=== PATIENT | female | born 1940 | race Hispanic/Latino ===

== ENCOUNTER 2021-03-29 22:43 | Inpatient (IN) | payer MEDICARE, OTHER ==
[~2021-03-29] VITALS: Ht 149.9 cm; Wt 49.9 kg
[~2021-03-29 22:43] MED LIST: ALENDRONATE SOD70 MG PO; AMLODIPINE BESYL5 MG PO; ASPIRIN ENTERI325 MG PO; ATORVASTATIN CA20 MG PO; CALCIUM 500+D1 EACH PO; CENTRUM SILVER1 EAC3 PO; DIOVAN160 MG PO; ISOSORBIDE MONO30 MG PO; LOVAZA1 GM PO; METOPROLOL TART50 MG PO; MIRALAX17 GM PO; NITROGLYCERIN0.4 MG SL; OMEPRAZOLE20 MG PO; OXYBUTYNIN CHLOR5 MG PO; TYLENOL EXTRA500 MG PO; VITAMIN D400 UNIT PO
[2021-03-29] MEDS ORDERED: ALBUTEROL/IPRATROPIUM 3 ML NEB NEB ONE (23:00)
[2021-03-29] MEDS ORDERED: DEXAMETHASONE SOD PHOS 10 MG/1 ML VIAL IV ONE (23:00)
[2021-03-29] MEDS ORDERED: IBUPROFEN 600 MG TAB PO STA (23:11)
[2021-03-29 23:18] LABS: BASOPHILS % 0.3 % (0.0-1.0); EOSINOPHILS # (AUTO) 0.1 (0.0-0.4); EOSINOPHILS % 0.3 % (0.0-6.0); HEMATOCRIT 34.1 % (34.2-44.1); HEMOGLOBIN 10.8 g/dL (12.0-16.0); LYMPHOCYTES # (AUTO) 1.3 (1.0-3.2); MEAN CORPUSCULAR HEMOGLOBIN 27.2 pg (28-32); MEAN CORPUSCULAR HGB CONC 31.7 g/dL (31-35); MEAN CORPUSCULAR VOLUME 85.9 fL (81-99); MONOCYTES # (AUTO) 1.5 (0.2-0.8); MONOCYTES % 10.6 % (4.4-11.3); NEUTROPHILS # (AUTO) 11.3 (2.1-6.9); PLATELET COUNT 348 x10e3/uL (140-360); RED BLOOD COUNT 3.97 x10e6/uL (3.6-5.1); RED CELL DISTRIBUTION WIDTH 20.7 % (11.7-14.4)
[2021-03-29] MEDS ORDERED: IBUPROFEN 600 MG TAB ONE (23:23)
[2021-03-29 23:34] LABS: ALBUMIN 3.4 g/dL (3.5-5.0); ALBUMIN/GLOBULIN RATIO 0.7 (0.8-2.0); ANION GAP 22.1 mmol/L (8-16); CALCIUM 8.8 mg/dL (8.4-10.2); CREATININE, SERUM 0.83 mg/dL (0.57-1.11); POTASSIUM 5.1 mmol/L (3.5-5.1)
[2021-03-29 23:43] LABS: B-TYPE NATRIURETIC PEPTIDE2 207.6 pg/mL (0-100)
[2021-03-29] MEDS ORDERED: ALBUTEROL1.25 MG/3 NEB (23:53)
[2021-03-29] MEDS ORDERED: ADVAIR 250-501 EACH INH (23:53)
[2021-03-29] MEDS ORDERED: SODIUM CHLORIDE3 ML NEB (23:53)
[2021-03-29] MEDS ORDERED: NEURONTIN300 MG PO (23:53)
[2021-03-29] MEDS ORDERED: NEURONTIN100 MG PO (23:53)
[2021-03-29] MEDS ORDERED: FORMOTEROL20 MCG/2 M INH (23:53)
[2021-03-29] MEDS ORDERED: ULTRAM50 MG PO (23:53)
[2021-03-29] MEDS ORDERED: MIRTAZAPINE7.5 MG PO (23:53)
[2021-03-29] MEDS ORDERED: HYDRALAZINE HCL10 MG PO (23:53)
[2021-03-29] MEDS ORDERED: FLONASE ALLERG9.9 ML INH (23:53)
[2021-03-30] MEDS ORDERED: LACTATED RINGER'S 1,000 ML INJ ONE
[2021-03-30] MEDS ORDERED: CEFTRIAXONE 1 GM in SODIUM CHLORIDE 0.9% 50ML 50 ML IV SCH (00:30)
[2021-03-30 02:58] VITALS: BP 114/69
[2021-03-30] MEDS ORDERED: POLYETHYLENE GLYCOL 3350 17 GM PACK PO PRN (08:15)
[2021-03-30] MEDS ORDERED: SODIUM CHLORIDE 0.9% NEBU SOLN 15 ML AMPULE INH PRN (08:15)
[2021-03-30] MEDS ORDERED: ONDANSETRON HCL INJ 2MG/ML 2ML 2 MG/ML VIAL IV PRN (08:15)
[2021-03-30] MEDS ORDERED: TRAMADOL HCL 50 MG TAB PO PRN (08:15)
[2021-03-30] MEDS ORDERED: GABAPENTIN 100 MG CAP PO PRN (08:15)
[2021-03-30] MEDS: ALBUTEROL/IPRATROPIUM 3 ML NEB NEB SCH ×6 (08:32→22:40)
[2021-03-30] MEDS ORDERED: ENOXAPARIN SOD INJ 40 MG/0.4 ML SYR SC SCH (09:00)
[2021-03-30] MEDS: HYDRALAZINE HCL 10 MG TAB PO SCH ×2 (09:09→16:25)
[2021-03-30] MEDS: ASPIRIN 325 MG TAB EC PO SCH (09:10)
[2021-03-30] MEDS: PANTOPRAZOLE SOD 40 MG TABEC PO SCH (09:11)
[2021-03-30] MEDS: ISOSORBIDE MONONITRATE 30 MG TAB CR PO SCH (09:11)
[2021-03-30] MEDS: OXYBUTYNIN CHLORIDE 5 MG TAB PO SCH ×2 (09:12→16:25)
[2021-03-30] MEDS: METOPROLOL TARTRATE 50 MG TAB PO SCH ×2 (09:12→16:27)
[2021-03-30] MEDS: CEFEPIME 1 GM in SODIUM CHLORIDE 0.9% 50ML 50 ML IV SCH ×2 (13:26→21:12)
[2021-03-30] MEDS ORDERED: CEFEPIME HCL 1 GM VIAL ONE (13:39)
[2021-03-30] MEDS: ACETAMINOPHEN 325 MG TAB PO PRN (16:37)
[2021-03-30] MEDS ORDERED: FORMOTEROL FUMARATE 20 MCG/2 ML VIAL IH SCH (19:00)
[2021-03-30] MEDS: SALMETEROL/FLUTICASONE 250/50 INH SCH (19:30)
[2021-03-30] MEDS ORDERED: SALMETEROL/FLUTICASONE 250/50 INH SCH (21:00)
[2021-03-30] MEDS: ATORVASTATIN 40 MG TAB PO SCH (21:12)
[2021-03-30] MEDS: MIRTAZAPINE 15 MG TAB PO SCH (21:12)
[2021-03-30] MEDS: GABAPENTIN 300 MG CAP PO SCH (21:12)
[2021-03-31] VITALS (10 sets, daily range): BP systolic 126–162; BP diastolic 67–79
[2021-03-31 05:56] LABS: BASOPHILS % 0.1 % (0.0-1.0); EOSINOPHILS % 0.1 % (0.0-6.0); HEMATOCRIT 29.2 % (34.2-44.1); HEMOGLOBIN 9.1 g/dL (12.0-16.0); LYMPHOCYTES # (AUTO) 1.3 (1.0-3.2); LYMPHOCYTES % 16.8 % (18.0-39.1); MEAN CORPUSCULAR HGB CONC 31.2 g/dL (31-35); MEAN CORPUSCULAR VOLUME 86.6 fL (81-99); MONOCYTES # (AUTO) 0.9 (0.2-0.8); MONOCYTES % 12.1 % (4.4-11.3); NEUTROPHILS # (AUTO) 5.2 (2.1-6.9); NEUTROPHILS % 69.2 % (38.7-80.0); PLATELET COUNT 307 x10e3/uL (140-360); RED BLOOD COUNT 3.37 x10e6/uL (3.6-5.1); RED CELL DISTRIBUTION WIDTH 20.3 % (11.7-14.4)
[2021-03-31] MEDS: CEFEPIME 1 GM in SODIUM CHLORIDE 0.9% 50ML 50 ML IV SCH ×3 (06:00→21:23)
[2021-03-31 06:14] LABS: ALBUMIN 2.8 g/dL (3.5-5.0); ALBUMIN/GLOBULIN RATIO 0.8 (0.8-2.0); ANION GAP 12.2 mmol/L (8-16); CALCIUM 8.4 mg/dL (8.4-10.2); CREATININE, SERUM 0.76 mg/dL (0.57-1.11); POTASSIUM 4.2 mmol/L (3.5-5.1)
[2021-03-31] MEDS: ALBUTEROL/IPRATROPIUM 3 ML NEB NEB SCH ×5 (07:10→22:55)
[2021-03-31] MEDS: PANTOPRAZOLE SOD 40 MG TABEC PO SCH (08:09)
[2021-03-31] MEDS: ASPIRIN 325 MG TAB EC PO SCH (08:10)
[2021-03-31] MEDS: HYDRALAZINE HCL 10 MG TAB PO SCH ×2 (08:10→17:03)
[2021-03-31] MEDS: OXYBUTYNIN CHLORIDE 5 MG TAB PO SCH ×2 (08:10→17:03)
[2021-03-31] MEDS: ISOSORBIDE MONONITRATE 30 MG TAB CR PO SCH (08:10)
[2021-03-31] MEDS: ENOXAPARIN 30 MG/0.3 ML SYR SC SCH (08:11)
[2021-03-31] MEDS: METOPROLOL TARTRATE 50 MG TAB PO SCH ×2 (08:11→17:03)
[2021-03-31] MEDS: SALMETEROL/FLUTICASONE 250/50 INH SCH ×2 (08:11→11:15)
[2021-03-31] MEDS ORDERED: SODIUM CHLORIDE 0.9% 250ML 250 ML ONE (08:30)
[2021-03-31] MEDS: ATORVASTATIN 40 MG TAB PO SCH (20:14)
[2021-03-31] MEDS: MIRTAZAPINE 15 MG TAB PO SCH (20:15)
[2021-03-31] MEDS: GABAPENTIN 300 MG CAP PO SCH (20:15)
[2021-04-01] VITALS (7 sets, daily range): BP systolic 118–160; BP diastolic 73–82
[2021-04-01] MEDS: ALBUTEROL/IPRATROPIUM 3 ML NEB NEB SCH ×6 (03:20→23:50)
[2021-04-01] MEDS: CEFEPIME 1 GM in SODIUM CHLORIDE 0.9% 50ML 50 ML IV SCH ×3 (05:24→20:51)
[2021-04-01] MEDS: SALMETEROL/FLUTICASONE 250/50 INH SCH ×2 (07:24→19:30)
[2021-04-01] MEDS: PANTOPRAZOLE SOD 40 MG TABEC PO SCH (09:18)
[2021-04-01] MEDS: HYDRALAZINE HCL 10 MG TAB PO SCH ×2 (09:19→17:34)
[2021-04-01] MEDS: ENOXAPARIN 30 MG/0.3 ML SYR SC SCH (09:19)
[2021-04-01] MEDS: METOPROLOL TARTRATE 50 MG TAB PO SCH ×2 (09:19→17:34)
[2021-04-01] MEDS: ISOSORBIDE MONONITRATE 30 MG TAB CR PO SCH (09:19)
[2021-04-01] MEDS: OXYBUTYNIN CHLORIDE 5 MG TAB PO SCH ×2 (09:19→17:34)
[2021-04-01] MEDS: ASPIRIN 325 MG TAB EC PO SCH (09:19)
[2021-04-01] MEDS: DRONABINOL 2.5MG PO SCH (17:33)
[2021-04-01] MEDS ORDERED: CEFEPIME HCL 1 GM VIAL ONE (20:45)
[2021-04-01] MEDS: GABAPENTIN 300 MG CAP PO SCH (20:51)
[2021-04-01] MEDS: ATORVASTATIN 40 MG TAB PO SCH (20:51)
[2021-04-01] MEDS: MIRTAZAPINE 15 MG TAB PO SCH (20:51)
[2021-04-01] MEDS: ACETAMINOPHEN 325 MG TAB PO PRN (23:21)
[2021-04-02] VITALS (8 sets, daily range): BP systolic 108–179; BP diastolic 61–90
[2021-04-02] MEDS: ALBUTEROL/IPRATROPIUM 3 ML NEB NEB SCH ×6 (03:25→22:50)
[2021-04-02 04:16] LABS: CLARITY,URINE CLEAR (CLEAR); COLOR,URINE YELLOW (YELLOW); KETONES,URINE NEGATIVE (NEGATIVE); LEUKOCYTE ESTERASE ,URINE NEGATIVE (NEGATIVE); NITRITE,URINE NEGATIVE (NEGATIVE); PROTEIN,URINE DIPSTICK 2+ (NEGATIVE); URINE UROBILINOGEN 0.2 mg/dL (0.2 - 1)
[2021-04-02 04:26] LABS: BACTERIA,URINE FEW /HPF; EPITHELIAL CELLS,URINE FEW /LPF; TRANSITIONAL EPI CELLS,URINE MODERATE; WBC,URINE (MAN) 0-5 /HPF (0-5)
[2021-04-02] MEDS: CEFEPIME 1 GM in SODIUM CHLORIDE 0.9% 50ML 50 ML IV SCH ×3 (05:44→21:08)
[2021-04-02 05:59] LABS: BASOPHILS # (AUTO) 0.1 (0.0-0.1); BASOPHILS % 0.9 % (0.0-1.0); EOSINOPHILS % 0.4 % (0.0-6.0); HEMATOCRIT 33.9 % (34.2-44.1); HEMOGLOBIN 10.2 g/dL (12.0-16.0); LYMPHOCYTES # (AUTO) 1.3 (1.0-3.2); LYMPHOCYTES % 23.7 % (18.0-39.1); MEAN CORPUSCULAR HEMOGLOBIN 27.1 pg (28-32); MEAN CORPUSCULAR HGB CONC 30.1 g/dL (31-35); MEAN CORPUSCULAR VOLUME 89.9 fL (81-99); MONOCYTES # (AUTO) 1.3 (0.2-0.8); MONOCYTES % 24.5 % (4.4-11.3); NEUTROPHILS # (AUTO) 2.3 (2.1-6.9); NEUTROPHILS % 44.1 % (38.7-80.0); PLATELET COUNT 141 x10e3/uL (140-360); RED BLOOD COUNT 3.77 x10e6/uL (3.6-5.1)
[2021-04-02 06:15] LABS: ANION GAP 15.3 mmol/L (8-16); CALCIUM 8.4 mg/dL (8.4-10.2); CREATININE, SERUM 0.68 mg/dL (0.57-1.11); POTASSIUM 4.3 mmol/L (3.5-5.1)
[2021-04-02] MEDS: SALMETEROL/FLUTICASONE 250/50 INH SCH ×2 (06:27→22:50)
[2021-04-02] MEDS: DRONABINOL 2.5MG PO SCH (07:30)
[2021-04-02] MEDS ORDERED: SODIUM CHLORIDE 0.9% 250ML 250 ML ONE (07:57)
[2021-04-02] MEDS: ASPIRIN 325 MG TAB EC PO SCH (09:00)
[2021-04-02] MEDS: HYDRALAZINE HCL 10 MG TAB PO SCH ×2 (10:00→17:12)
[2021-04-02] MEDS: OXYBUTYNIN CHLORIDE 5 MG TAB PO SCH ×2 (10:00→17:12)
[2021-04-02] MEDS: METOPROLOL TARTRATE 50 MG TAB PO SCH ×2 (10:00→17:13)
[2021-04-02] MEDS: ENOXAPARIN 30 MG/0.3 ML SYR SC SCH (10:00)
[2021-04-02] MEDS: ISOSORBIDE MONONITRATE 30 MG TAB CR PO SCH (10:00)
[2021-04-02] MEDS: PANTOPRAZOLE SOD 40 MG TABEC PO SCH (10:00)
[2021-04-02] MEDS: ACETAMINOPHEN 325 MG TAB PO PRN (18:19)
[2021-04-02] MEDS: GABAPENTIN 300 MG CAP PO SCH (20:08)
[2021-04-02] MEDS: ATORVASTATIN 40 MG TAB PO SCH (20:08)
[2021-04-02] MEDS: MIRTAZAPINE 15 MG TAB PO SCH (20:08)
[2021-04-02] MEDS ORDERED: CLONIDINE HCL 0.1 MG TAB PO PRN (20:15)
[2021-04-03] VITALS (9 sets, daily range): BP systolic 126–179; BP diastolic 60–84
[2021-04-03] MEDS: ALBUTEROL/IPRATROPIUM 3 ML NEB NEB SCH ×6 (02:50→22:55)
[2021-04-03] MEDS: CEFEPIME 1 GM in SODIUM CHLORIDE 0.9% 50ML 50 ML IV SCH ×3 (05:09→22:20)
[2021-04-03] MEDS: SALMETEROL/FLUTICASONE 250/50 INH SCH ×2 (06:36→18:20)
[2021-04-03] MEDS ORDERED: SODIUM CHLORIDE 0.9% 250ML 250 ML ONE (07:34)
[2021-04-03] MEDS: OXYBUTYNIN CHLORIDE 5 MG TAB PO SCH ×2 (09:10→17:00)
[2021-04-03] MEDS: ISOSORBIDE MONONITRATE 30 MG TAB CR PO SCH (09:10)
[2021-04-03] MEDS: ASPIRIN 325 MG TAB EC PO SCH (09:10)
[2021-04-03] MEDS: HYDRALAZINE HCL 10 MG TAB PO SCH ×2 (09:10→17:00)
[2021-04-03] MEDS: PANTOPRAZOLE SOD 40 MG TABEC PO SCH (09:10)
[2021-04-03] MEDS: POLYETHYLENE GLYCOL 3350 17 GM PACK PO SCH (09:11)
[2021-04-03] MEDS: ENOXAPARIN 30 MG/0.3 ML SYR SC SCH (09:11)
[2021-04-03] MEDS: METOPROLOL TARTRATE 50 MG TAB PO SCH ×2 (09:11→17:00)
[2021-04-03] MEDS: DEXTROSE 5%/0.9% SOD CHL 1,000 ML IV SCH (17:18)
[2021-04-03] MEDS: MIRTAZAPINE 15 MG TAB PO SCH (21:00)
[2021-04-03] MEDS: ATORVASTATIN 40 MG TAB PO SCH (21:00)
[2021-04-03] MEDS: GABAPENTIN 300 MG CAP PO SCH (21:00)
[2021-04-04] VITALS: BP 164/66
[2021-04-04] MEDS: ALBUTEROL/IPRATROPIUM 3 ML NEB NEB SCH ×6 (03:32→21:50)
[2021-04-04 04:00] VITALS: BP 109/40
[2021-04-04] MEDS: CEFEPIME 1 GM in SODIUM CHLORIDE 0.9% 50ML 50 ML IV SCH (06:20)
[2021-04-04] MEDS: DEXTROSE 5%/0.9% SOD CHL 1,000 ML IV SCH ×2 (06:20→19:40)
[2021-04-04 07:33] VITALS: BP 109/40
[2021-04-04] MEDS: SALMETEROL/FLUTICASONE 250/50 INH SCH ×2 (08:17→19:00)
[2021-04-04] MEDS: ASPIRIN 325 MG TAB EC PO SCH (08:29)
[2021-04-04] MEDS: ISOSORBIDE MONONITRATE 30 MG TAB CR PO SCH (08:29)
[2021-04-04] MEDS: OXYBUTYNIN CHLORIDE 5 MG TAB PO SCH (08:29)
[2021-04-04] MEDS: HYDRALAZINE HCL 10 MG TAB PO SCH ×2 (08:29→17:00)
[2021-04-04] MEDS: POLYETHYLENE GLYCOL 3350 17 GM PACK PO SCH (08:29)
[2021-04-04] MEDS: PANTOPRAZOLE SOD 40 MG TABEC PO SCH (08:29)
[2021-04-04] MEDS: ENOXAPARIN 30 MG/0.3 ML SYR SC SCH (08:30)
[2021-04-04] MEDS: METOPROLOL TARTRATE 50 MG TAB PO SCH ×2 (08:30→17:00)
[2021-04-04] MEDS ORDERED: LORAZEPAM INJ 2 MG/ML VIAL IV ONE ×2 (12:00→22:30)
[2021-04-04] MEDS ORDERED: LORAZEPAM INJ 2 MG/ML VIAL IM STA (16:51)
[2021-04-04 20:00] VITALS: BP 123/56
[2021-04-04 21:00] VITALS: BP 123/56
[2021-04-04] MEDS: MIRTAZAPINE 15 MG TAB PO SCH (21:00)
[2021-04-04] MEDS: GABAPENTIN 100 MG CAP PO SCH (21:00)
[2021-04-04] MEDS: ATORVASTATIN 40 MG TAB PO SCH (21:00)
[2021-04-05] VITALS (7 sets, daily range): BP systolic 124–199; BP diastolic 65–96
[2021-04-05 00:08] LABS: ABG PH 7.25 (7.35-7.45)
[2021-04-05 00:09] LABS: ABG HCO3 29 mmol/L (22-26); ABG PCO2 65 mmHg (35-45); ABG PO2 81 mmHg (80-105); ABG TCO2 30
[2021-04-05] MEDS: ALBUTEROL/IPRATROPIUM 3 ML NEB NEB SCH ×5 (02:50→23:55)
[2021-04-05 06:31] LABS: BASOPHILS % 0.3 % (0.0-1.0); EOSINOPHILS % 0.3 % (0.0-6.0); HEMATOCRIT 28.3 % (34.2-44.1); HEMOGLOBIN 8.3 g/dL (12.0-16.0); LYMPHOCYTES # (AUTO) 0.7 (1.0-3.2); LYMPHOCYTES % 18.2 % (18.0-39.1); MEAN CORPUSCULAR HEMOGLOBIN 26.8 pg (28-32); MEAN CORPUSCULAR HGB CONC 29.3 g/dL (31-35); MEAN CORPUSCULAR VOLUME 91.3 fL (81-99); MONOCYTES # (AUTO) 0.6 (0.2-0.8); MONOCYTES % 17.4 % (4.4-11.3); NEUTROPHILS # (AUTO) 2.2 (2.1-6.9); NEUTROPHILS % 61.8 % (38.7-80.0); PLATELET COUNT 262 x10e3/uL (140-360); RED CELL DISTRIBUTION WIDTH 20.3 % (11.7-14.4)
[2021-04-05] MEDS: SALMETEROL/FLUTICASONE 250/50 INH SCH ×2 (07:00→20:20)
[2021-04-05 07:19] LABS: ANION GAP 11.1 mmol/L (8-16); CREATININE, SERUM 0.62 mg/dL (0.57-1.11); MAGNESIUM 2.4 MG/DL (1.3-2.1); POTASSIUM 4.1 mmol/L (3.5-5.1)
[2021-04-05] MEDS: PANTOPRAZOLE SOD 40 MG TABEC PO SCH (07:30)
[2021-04-05 07:39] LABS: THYROID STIMULATING HORMONE 0.305 uIU/mL (0.350-4.940)
[2021-04-05] MEDS: ISOSORBIDE MONONITRATE 30 MG TAB CR PO SCH (08:39)
[2021-04-05] MEDS: METOPROLOL TARTRATE 50 MG TAB PO SCH ×2 (08:39→14:53)
[2021-04-05] MEDS: ASPIRIN 325 MG TAB EC PO SCH (08:39)
[2021-04-05] MEDS: POLYETHYLENE GLYCOL 3350 17 GM PACK PO SCH (08:40)
[2021-04-05 10:06] LABS: ABG HCO3 30 mmol/L (22-26); ABG PCO2 68 mmHg (35-45); ABG PH 7.26 (7.35-7.45); ABG PO2 180 mmHg (80-105)
[2021-04-05 10:07] LABS: ABG TCO2 32
[2021-04-05] MEDS: CYANOCOBALAMIN INJ 1,000 MCG/ML VIAL IM SCH (10:11)
[2021-04-05] MEDS: DEXTROSE 5%/0.9% SOD CHL 1,000 ML IV SCH ×2 (10:11→22:13)
[2021-04-05] MEDS: ENOXAPARIN 30 MG/0.3 ML SYR SC SCH (10:11)
[2021-04-05] MEDS: METOPROLOL TARTRATE INJ 1 MG/ML VIAL IV PRN ×2 (11:32→15:11)
[2021-04-05 12:21] LABS: ABG PCO2 65 mmHg (35-45); ABG PH 7.25 (7.35-7.45)
[2021-04-05 12:22] LABS: ABG HCO3 29 mmol/L (22-26); ABG PO2 81 mmHg (80-105); ABG TCO2 30
[2021-04-05 15:09] LABS: ABG HCO3 30 mmol/L (22-26); ABG PCO2 61 mmHg (35-45); ABG PH 7.29 (7.35-7.45); ABG PO2 128 mmHg (80-105); ABG TCO2 32
[2021-04-05] MEDS: GABAPENTIN 100 MG CAP PO SCH (21:00)
[2021-04-05] MEDS: ATORVASTATIN 40 MG TAB PO SCH (21:00)
[2021-04-05] MEDS: MIRTAZAPINE 15 MG TAB PO SCH (21:00)
[2021-04-05] MEDS ORDERED: HYDRALAZINE HCL 20 MG/ML VIAL IV PRN (21:15)
[2021-04-05] MEDS ORDERED: LORAZEPAM INJ 2 MG/ML VIAL IV ONE (22:45)
[2021-04-05] MEDS ORDERED: DEXMEDETOMIDINE 400MCG/NS100ML 100 ML IV PRN (23:45)
[2021-04-05] MEDS ORDERED: DEXMEDETOMIDINE 400MCG/NS100ML 100 ML IV ONE (23:59)
[2021-04-06] VITALS (10 sets, daily range): BP systolic 100–141; BP diastolic 56–117
[2021-04-06] MEDS: ALBUTEROL/IPRATROPIUM 3 ML NEB NEB SCH ×4 (04:05→15:39)
[2021-04-06 05:06] LABS: BASOPHILS % 0.2 % (0.0-1.0); LYMPHOCYTES # (AUTO) 0.4 (1.0-3.2); LYMPHOCYTES % 7.9 % (18.0-39.1); MEAN CORPUSCULAR HEMOGLOBIN 26.7 pg (28-32); MEAN CORPUSCULAR HGB CONC 29.6 g/dL (31-35); MONOCYTES # (AUTO) 0.9 (0.2-0.8); NEUTROPHILS # (AUTO) 3.9 (2.1-6.9); NEUTROPHILS % 73.6 % (38.7-80.0); PLATELET COUNT 257 x10e3/uL (140-360); RED CELL DISTRIBUTION WIDTH 20.5 % (11.7-14.4)
[2021-04-06 05:46] LABS: ANION GAP 10.3 mmol/L (8-16); CALCIUM 7.6 mg/dL (8.4-10.2); CREATININE, SERUM 0.56 mg/dL (0.57-1.11); POTASSIUM 3.3 mmol/L (3.5-5.1)
[2021-04-06 05:52] LABS: FREE T4 (FREE THYROXINE) 0.9 ng/dL (0.8-1.8)
[2021-04-06] MEDS: PANTOPRAZOLE SOD 40 MG TABEC PO SCH (07:30)
[2021-04-06 07:49] LABS: LYMPHOCYTES % (MANUAL) 8 % (19-48); MONOCYTES % (MANUAL) 13 % (3.4-9.0); NEUTROPHILS % (MANUAL) 79 % (40-74)
[2021-04-06 07:50] LABS: ANISOCYTOSIS SLIGHT; HYPOCHROMASIA SLIGHT; PLATELET ESTIMATE ADEQUATE; PLATELET MORPHOLOGY COMMENT NORMAL; RBC MORPHOLOGY COMMENT ABNORMAL
[2021-04-06] MEDS: ASPIRIN 325 MG TAB EC PO SCH (08:38)
[2021-04-06] MEDS: ENOXAPARIN 30 MG/0.3 ML SYR SC SCH (08:38)
[2021-04-06] MEDS: CYANOCOBALAMIN INJ 1,000 MCG/ML VIAL IM SCH (08:38)
[2021-04-06] MEDS: POLYETHYLENE GLYCOL 3350 17 GM PACK PO SCH (08:38)
[2021-04-06] MEDS ORDERED: POTASSIUM CHLORIDE 20MEQ/100ML 100 ML IV PRN (08:45)
[2021-04-06] MEDS: ISOSORBIDE MONONITRATE 30 MG TAB CR PO SCH (08:55)
[2021-04-06] MEDS: METOPROLOL TARTRATE 50 MG TAB PO SCH (08:55)
[2021-04-06 09:20] LABS: ABG HCO3 31 mmol/L (22-26); ABG PCO2 53 mmHg (35-45); ABG PH 7.36 (7.35-7.45); ABG PO2 115 mmHg (80-105); ABG TCO2 32
[2021-04-06] MEDS: METOPROLOL TARTRATE INJ 1 MG/ML VIAL IV PRN (14:21)
== END 2021-04-06 18:17 | disposition short-term general hospital (02) | DRG 871 ==
LOC: ER 23:08 → ERHOLD 03-30 00:33 → IMCU 03-30 01:27 → OBSVTOIN 03-30 10:40 → IMCU 04-04 23:30
PROVIDERS: ADMIT Internal Medicine; ATTEND Internal Medicine
PROC: 02HV33Z Insertion of Infusion Device into Superior Vena Cava, Percutaneous Approach (ICD-10-PCS; principal; 2021-04-04)
DX: A41.9 Sepsis, unspecified organism (principal); J18.9 Pneumonia, unspecified organism; J96.21 Acute and chronic respiratory failure with hypoxia; G92.8 Other toxic encephalopathy; J96.02 Acute respiratory failure with hypercapnia; J44.0 Chronic obstructive pulmonary disease with (acute) lower respiratory infection; F23 Brief psychotic disorder; J44.1 Chronic obstructive pulmonary disease with (acute) exacerbation; I10 Essential (primary) hypertension; I25.10 Atherosclerotic heart disease of native coronary artery without angina pectoris; E78.5 Hyperlipidemia, unspecified; Z88.8 Allergy status to other drugs, medicaments and biological substances; R06.03 Acute respiratory distress; Z99.81 Dependence on supplemental oxygen; Z77.22 Contact with and (suspected) exposure to environmental tobacco smoke (acute) (chronic); Z98.61 Coronary angioplasty status; E11.9 Type 2 diabetes mellitus without complications; K21.9 Gastro-esophageal reflux disease without esophagitis; T36.1X5A Adverse effect of cephalosporins and other beta-lactam antibiotics, initial encounter; Y92.230 Patient room in hospital as the place of occurrence of the external cause; Z20.822 Contact with and (suspected) exposure to COVID-19
CPT/HCPCS: 36415; 36569; 36600; 70450; 70551; 71045; 71250; 74230; 80048; 80053; 81001; 82607; 82805; 82948; 83605; 83735; 83880; 84439; 84443; 84484; 85025; 87040; 93005; 93306; 93931; 94640; 94660; 94664; 96360; 96361; 96365; 97139; 99284; J0360; J0456; J0692; J0696; J1100; J1650; J2060; J3420; J3480; J7042; J7050; J7121; U0002